=== PATIENT | female | born 1995 | race Caucasian/White ===

== ENCOUNTER 2018-01-21 15:35 | Emergency (ER) | payer BC ==
[2018-01-21 15:51] VITALS: BP 153/78
[2018-01-21] MEDS ORDERED: Sodium Chloride 0.9% 10 ML Syringe FLUSH PRN (16:08)
--- NOTE | 2018-01-21 16:09 | EDM.PDOC ---
ED HPI GENERAL MEDICAL PROBLEM - General Chief Complaint: Respiratory Problem Stated Complaint: HARD TIME CATCHING BREATH Time Seen by Provider: 01/21/18 15:49 Source of Information: Reports: Patient History Limitations: Reports: No Limitations - History of Present Illness INITIAL COMMENTS - FREE TEXT/NARRATIVE: 22-year-old female presents for evaluation and treatment of shortness of breath. Patient reports starting around 1400. She was grocery shopping time. States that she has feels like she has a hard time catching her breath. She reports chest pressure with this. She states that she felt lightheaded and experienced tunnel vision. She did feel nauseous. She now has a headache. She denies any syncope, vomiting, pain or swelling in her legs. No recent travel. patient reports that she has had similar symptoms on and off similar to this since June or July when she was started on Wellbutrin. She had first attributed this to drinking caffeine and beeing on the Wellbutrin. She states that she has discontinued taking caffeine. She states she now gets the same feeling when she drinks even water. Patient is not currently on any contraceptives. Primary care provider is Dr. Hill. 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 Other Musculoskeletal History: right wrist Psychiatric History: Reports: Depression - Past Surgical History HEENT Surgical History: Reports: Oral Surgery Musculoskeletal Surgical History: Reports: Other (See Below) Other Musculoskeletal Surgeries/Procedures:: closed reduction Social & Family History - Tobacco Use Smoking Status *Q: Never Smoker - Caffeine Use Caffeine Use: Reports: None - Recreational Drug Use Recreational Drug Use: No ED ROS GENERAL - Review of Systems Review Of Systems: See Below HEENT: Reports: Vision Change (reports tunnel vision earlier, now resolved) Respiratory: Reports: Shortness of Breath Cardiovascular: Reports: Chest Pain (reports chest pressure), Lightheadedness GI/Abdominal: Reports: Nausea. Denies: Vomiting Musculoskeletal: Denies: Leg Pain Neurological: Reports: Syncope ED EXAM, GENERAL - Physical Exam Exam: See Below Exam Limited By: No Limitations General Appearance: Alert, WD/WN, No Apparent Distress, Thin Eye Exam: Bilateral Eye: Normal Inspection, PERRL Ears: Normal External Exam, Normal Canal, Hearing Grossly Normal, Normal TMs Nose: Normal Inspection Throat/Mouth: Normal Inspection, Normal Lips, Normal Oropharynx, Normal Voice, No Airway Compromise Respiratory/Chest: No Respiratory Distress, Lungs Clear, Normal Breath Sounds Cardiovascular: Normal Peripheral Pulses, Regular Rate, Rhythm, No Murmur GI/Abdominal: Soft, Non-Tender Extremities: Normal Inspection. No: Rand's Sign Neurological: Alert, Oriented, Normal Cognition Psychiatric: Normal Affect, Normal Mood Skin Exam: Warm, Dry, Normal Color EKG INTERPRETATION EKG Date: 01/21/18 Time: 16:20 Rhythm: NSR Rate (Beats/Min): 105 [place]: Normal P-Wave: Present QRS: Normal ST-T: Normal QT: Normal EKG Interpretation Comments: sinus tachycardia at 105 bpm. Reviewed by myself and Dr. Alonso. Course - Vital Signs Last Recorded V/S: Last Vital Signs Temp 99.5 F 01/21/18 15:40 Pulse 151 H 01/21/18 15:40 Resp 24 H 01/21/18 15:40 BP 153/78 H 01/21/18 15:40 Pulse Ox 99 01/21/18 15:40 - Orders/Labs/Meds Orders: Active Orders 24 hr Category Date Time Status Holter Monitor 48 Hours [RC] .PRN Care 01/21/18 18:11 Active Labs: Laboratory Tests 01/21/18 01/21/18 01/21/18 Range/Units 16:27 16:27 16:27 WBC 7.79 (3.98-10.04) K/mm3 RBC 4.69 (3.98-5.22) M/mm3 Hgb 14.0 (11.2-15.7) gm/L Hct 42.2 (34.1-44.9) % MCV 90.0 (79.4-94.8) fl MCH 29.9 (25.6-32.2) pg MCHC 33.2 (32.2-35.5) g/dl RDW Std Deviation 40.9 (36.4-46.3) fL Plt Count 331 (182-369) K/mm3 MPV 9.3 L (9.4-12.3) fl Neut % (Auto) 66.2 (34.0-71.1) % Lymph % (Auto) 23.2 (19.3-51.7) % Boundary % (Auto) 9.1 (4.7-12.5) % Eos % (Auto) 1.0 (0.7-5.8) Baso % (Auto) 0.4 (0.1-1.2) % Neut # (Auto) 5.15 (1.56-6.13) K/mm3 Lymph # (Auto) 1.81 (1.18-3.74) K/mm3 Boundary # (Auto) 0.71 H (0.24-0.36) K/mm3 Eos # (Auto) 0.08 (0.04-0.36) K/mm3 Baso # (Auto) 0.03 (0.01-0.08) K/mm3 D-Dimer, Quantitative 0.20 (0.19-0.50) mg/L Sodium 139 (136-145) mEq/L Potassium 3.6 (3.5-5.1) mEq/L Chloride 103 (98-107) mEq/L Carbon Dioxide 23 (21-32) mEq/L Anion Gap 16.6 H (5-15) BUN 17 (7-18) mg/dL Creatinine 0.7 (0.55-1.02) mg/dL Est Cr Clr Drug Dosing 101.39 mL/min Estimated GFR (MDRD) > 60 (>60) mL/min BUN/Creatinine Ratio 24.3 H (14-18) Glucose 88 (74-106) mg/dL Calcium 8.9 (8.5-10.1) mg/dL Magnesium 1.9 (1.8-2.4) mg/dl Total Bilirubin 0.4 (0.2-1.0) mg/dL AST 17 (15-37) U/L ALT 22 (14-59) U/L Alkaline Phosphatase 67 (46-116) U/L Troponin I (0.00-0.056) ng/mL Total Protein 7.9 (6.4-8.2) g/dl Albumin 4.1 (3.4-5.0) g/dl Globulin 3.8 gm/dL Albumin/Globulin Ratio 1.1 (1-2) TSH 3rd Generation 1.539 (0.516-4.13) uIU/mL HCG, Qual (NEGATIVE) Urine Color (Yellow) Urine Appearance (Clear) Urine pH (5.0-8.0) Ur Specific [place] (1.005-1.030) Urine Protein (Negative) Urine Glucose (UA) (Negative) Urine Ketones (Negative) Urine Occult Blood (Negative) Urine Nitrite (Negative) Urine Bilirubin (Negative) Urine Urobilinogen (0.2-1.0) Ur Leukocyte Esterase (Negative) Urine RBC (0-5) /hpf Urine WBC (0-5) /hpf Ur Epithelial Cells (0-5) /hpf Urine Bacteria (FEW) /hpf Urine Mucus (FEW) /hpf 01/21/18 01/21/18 01/21/18 Range/Units 16:27 16:27 16:57 WBC (3.98-10.04) K/mm3 RBC (3.98-5.22) M/mm3 Hgb (11.2-15.7) gm/L Hct (34.1-44.9) % MCV (79.4-94.8) fl MCH (25.6-32.2) pg MCHC (32.2-35.5) g/dl RDW Std Deviation (36.4-46.3) fL Plt Count (182-369) K/mm3 MPV (9.4-12.3) fl Neut % (Auto) (34.0-71.1) % Lymph % (Auto) (19.3-51.7) % Boundary % (Auto) (4.7-12.5) % Eos % (Auto) (0.7-5.8) Baso % (Auto) (0.1-1.2) % Neut # (Auto) (1.56-6.13) K/mm3 Lymph # (Auto) (1.18-3.74) K/mm3 Bound[place] # (Auto) (0.24-0.36) K/mm3 Eos # (Auto) (0.04-0.36) K/mm3 Baso # (Auto) (0.01-0.08) K/mm3 D-Dimer, Quantitative (0.19-0.50) mg/L Sodium (136-145) mEq/L Potassium (3.5-5.1) mEq/L Chloride (98-107) mEq/L Carbon Dioxide (21-32) mEq/L Anion Gap (5-15) BUN (7-18) mg/dL Creatinine (0.55-1.02) mg/dL Est Cr Clr Drug Dosing mL/min Estimated GFR (MDRD) (>60) mL/min BUN/Creatinine Ratio (14-18) Glucose (74-106) mg/dL Calcium (8.5-10.1) mg/dL Magnesium (1.8-2.4) mg/dl Total Bilirubin (0.2-1.0) mg/dL AST (15-37) U/L ALT (14-59) U/L Alkaline Phosphatase (46-116) U/L Troponin I < 0.017 (0.00-0.056) ng/mL Total Protein (6.4-8.2) g/dl Albumin (3.4-5.0) g/dl Globulin gm/dL Albumin/Globulin Ratio (1-2) TSH 3rd Generation (0.516-4.13) uIU/mL HCG, Qual Negative (NEGATIVE) Urine Color Yellow (Yellow) Urine Appearance Clear (Clear) Urine pH 6.5 (5.0-8.0) Ur Specific [place] 1.015 (1.005-1.030) Urine Protein Negative (Negative) Urine Glucose (UA) Negative (Negative) Urine Ketones 1+ H (Negative) Urine Occult Blood Negative (Negative) Urine Nitrite Negative (Negative) Urine Bilirubin Negative (Negative) Urine Urobilinogen 0.2 (0.2-1.0) Ur Leukocyte Esterase Negative (Negative) Urine RBC 0-5 (0-5) /hpf Urine WBC 0-5 (0-5) /hpf Ur Epithelial Cells 0-5 (0-5) /hpf Urine Bacteria Occasional (FEW) /hpf Urine Mucus Not seen (FEW) /hpf Meds: Medications Discontinued Medications Generic Name Dose Route Start Last Admin Trade Name Freq PRN Reason Stop Dose Admin Sodium Chloride 10 ml 01/21/18 16:08 Saline Flush FLUSH ASDIRECTED PRN Keep Vein Open - Radiology Interpretation Free Text/Narrative:: chest xray shows no acute intrathoracic process. Reviewed by myself and Dr. Alonso. - Re-Assessments/Exams Free Text/Narrative Re-Assessment/Exam: 01/21/18 18:12 Reviewed the labs, EKG and imaging with the patient. She feels better since coming to the ED. Will place on a 48-hour Holter monitor. I will have her avoid caffeine. Discussed that this is possibly a side effect of her medications. At this point will obtain a 48-hour Holter monitor to rule out any underlying arrhythmias. She'll follow up with her primary care provider as soon as she is able to. May discuss discontinuing the Wellbutrin at that appointment. Discharge instructions as documented. 01/21/18 18:40 Patient is going out of town the next few days. Will have her wear the holter monitor when she returns on Saturday. Departure - Departure Time of Disposition: 18:12 Disposition: Home, Self-Care 01 Condition: Fair Clinical Impression: Tachycardia - Discharge Information *PRESCRIPTION DRUG MONITORING PROGRAM REVIEWED*: No *COPY OF PRESCRIPTION DRUG MONITORING REPORT IN PATIENT ZOHRA: No Instructions: Sinus Tachycardia Referrals: PCP,None [Primary Care Provider] - Brenda Francisco MD [Physician] - Forms: ED Department Discharge Additional Instructions: Wear 48 hour holter monitor as directed. Follow-up with PCP within the next 1-2weeks for a recheck and to review holter monitor results. Rest. Drink plenty of fluids. Please return to the ER should your symptoms change or worsen. - My Orders Last 24 Hours: My Active Orders 01/21/18 18:11 Holter Monitor 48 Hours [RC] .PRN - Assessment/Plan Last 24 Hours: My Active Orders 01/21/18 18:11 Holter Monitor 48 Hours [RC] .PRN
--- NOTE | 2018-01-23 09:01 | CR ---
Chest: Two views of the chest were obtained. Comparison: Prior chest x-ray of 01/25/15. Heart size and mediastinum are normal. Lungs are clear. Bony structures are unremarkable. Impression: 1. Nothing acute is seen on two-view chest x-ray. Diagnostic code #1
== END 2018-01-21 18:26 | disposition home or self-care (01) ==
LOC: JD.ED 15:35
DX: R00.0 Tachycardia, unspecified (principal); Z88.1 Allergy status to other antibiotic agents; Z88.0 Allergy status to penicillin; Z88.2 Allergy status to sulfonamides; Z79.899 Other long term (current) drug therapy
CPT/HCPCS: 36415; 71046; 71046-26; 80053; 81001; 83735; 84443; 84484; 84703; 85025; 85379; 93005; 93010; 99284; 99285-25

== ENCOUNTER 2020-08-01 19:02 | Inpatient (IN) | payer BC ==
[2020-08-01] MEDS ORDERED: Nalbuphine 10 MG/1 ML Vial IVPUSH PRN (20:08)
[2020-08-01] MEDS ORDERED: Sodium Chloride 0.9% 10 ML Syringe FLUSH PRN (20:08)
[2020-08-01] MEDS ORDERED: Ondansetron 4 MG/2 ML SDV IVPUSH PRN ×2 (20:08→21:56)
--- NOTE | 2020-08-01 20:09 | PCM.LDHP ---
L&D History of Present Illness - General Date of Service: 08/01/20 Admit Problem/Dx: Patient Status Order with Admit Dx/Problem 08/01/20 19:29 Patient Status [ADT] Routine 08/01/20 20:08 Patient Status [ADT] Routine Admission Diagnosis/Problem Admission Diagnosis/Problem Source of Information: Patient History Limitations: Reports: No Limitations - History of Present Illness Introduction:: Patient is a 25 y/o at 37 1/7 wks who presents with SROM. Occurred this PM around supper. Started noting very painful contractions right after. 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 : 1 Para: 0 LMP (Approximate): Other Musculoskeletal History: right wrist Psychiatric History: Reports: Anxiety, Depression - Past Surgical History HEENT Surgical History: Reports: Myringotomy w Tube(s), Oral Surgery Female Surgical History: Reports: Other (See Below) (diagnostic laparoscopy) Musculoskeletal Surgical History: Reports: Other (See Below) Other Musculoskeletal Surgeries/Procedures:: closed reduction Social & Family History - Tobacco Use Tobacco Use Status *Q: Never Tobacco User - Caffeine Use Caffeine Use: Reports: None - Alcohol Use Alcohol Use History: No - Recreational Drug Use Recreational Drug Use: No H&P Review of Systems - Review of Systems: Review Of Systems: See Below General: Reports: No Symptoms Pulmonary: Reports: No Symptoms Cardiovascular: Reports: No Symptoms Gastrointestinal: Reports: No Symptoms Genitourinary: Reports: No Symptoms Musculoskeletal: Reports: No Symptoms Psychiatric: Reports: No Symptoms Neurological: Reports: No Symptoms L&D Exam - Exam Exam: See Below - Vital Signs Weight: 75.07 kg - OB Specific Contraction Intensity: Moderate to Strong Movement: Active Heart Tones: Present Heart Tones per Min: 135 Heart Rate (FHR) Variability: Moderate (6-25 bmp) Presentation: Vertex - Lambert Score Lambert Score Cervix Position: Anterior Lambert Score Consistency: Soft Lambert Score Effacement: >80% Lambert Score Dilation: 3-4 cm Lambert Score Infant's Station: -1 ,0 Lambert Score Total: 11 - Exam General: Alert, Oriented, Cooperative Lungs: Clear to Auscultation, Normal Respiratory Effort Cardiovascular: Regular Rate, Regular Rhythm GI/Abdominal Exam: Soft, Non-Tender Genitourinary: Normal external exam Extremities: Normal Inspection Skin: Warm, Dry, Intact - Patient Data Lab Results Last 24 hrs: Laboratory Results - last 24 hr 08/01/20 Range/Units 19:30 Membrane Rupture Positive H - Problem List (1) 37 weeks gestation of SNOMED Code(s): 84222353 ICD Code: Z3A.37 - 37 WEEKS GESTATION OF Status: Acute Current Visit: Yes (2) Spontaneous rupture of membranes SNOMED Code(s): 868982496 ICD Code: [id number] - Status: Acute Current Visit: Yes (3) Thin meconium stained amniotic fluid SNOMED Code(s): 913560826 ICD Code: P96.83 - MECONIUM STAINING Status: Acute Current Visit: Yes (4) GBS carrier SNOMED Code(s): 8344221150446 ICD Code: Z22.330 - CARRIER OF GROUP B STREPTOCOCCUS Status: Acute Cu rrent Visit: Yes Problem List Initiated/Reviewed/Updated: Yes Orders Last 24hrs: Active Orders 24 hr Category Date Time Status Patient Status [ADT] Routine ADT 08/01/20 19:29 Active Patient Status [ADT] Routine ADT 08/01/20 20:08 Ordered Activity as Tolerated [RC] PFP Care 08/01/20 20:08 Ordered Communication Order [RC] ASDIRECTED Care 08/01/20 20:08 Ordered Heart Tones [RC] ASDIRECTED Care 08/01/20 20:08 Ordered Non Stress Test [RC] PER UNIT ROUTINE Care 08/01/20 19:29 Active Notify Provider [RC] PRN Care 08/01/20 20:08 Ordered Peripheral IV Care [RC] . DIRECTED Care 08/01/20 20:08 Ordered Vaginal Exam [RC] PRN Care 08/01/20 19:30 Active Vital Signs [RC] PER UNIT ROUTINE Care 08/01/20 19:29 Active Regular Diet [DIET] Diet 08/01/20 Dinner Ordered CBC W/O DIFF,HEMOGRAM [HEME] Stat Lab 08/01/20 20:08 Ordered CORONAVIRUS COVID-19 [facility] [MOLEC] Stat Lab 08/01/20 19:30 Received RAPID PLASMA REAGIN,RPR [CHEM] Routine Lab 08/01/20 20:08 Ordered TYPE AND SCREEN [BBK] Stat Lab 08/01/20 20:08 Ordered Lactated Ringers [Ringers, Lactated] 1,000 ml Med 08/01/20 20:15 Ordered IV ASDIRECTED Nalbuphine [Nubain] Med 08/01/20 20:08 Ordered 10 mg IVPUSH Q2H PRN Ondansetron [Zofran] Med 08/01/20 20:08 Ordered 4 mg IVPUSH Q4H PRN Oxytocin/Lactated Ringers [Pitocin in LR 10 Units/1,000 Med 08/01/20 20:15 Ordered ML] 10 unit in 1,000 ml IV .CONTINUOUS Sodium Chloride 0.9% [Saline Flush] Med 08/01/20 20:08 Ordered 10 ml FLUSH ASDIRECTED PRN Vancomycin [Vancocin] 1 gm Med 08/01/20 21:00 Ordered Sodium Chloride 0.9% [Normal Saline (AdvBag)] 250 ml IV Q12HR Electronic Heart Tones Ext w TOCO [WOMSER] Oth 08/01/20 20:08 Ordered Routine Electronic Heart Tones Internal [WOMSER] Per Unit Oth 08/01/20 20:08 Ordered Routine Peripheral IV Insertion Adult [OM.PC] Routine Oth 08/01/20 20:08 Ordered Resuscitation Status Routine Resus Stat 08/01/20 19:29 Ordered Medication Orders Lactated Ringer's (Ringers, Lactated) 1,000 mls @ 100 mls/hr IV ASDIRECTED EDU Vancomycin HCl 1 gm/ Sodium (Chloride) 250 mls @ 167 mls/hr IV Q12HR EDU Oxytocin/Lactated Ringer's (Pitocin In Lr 10 Units/1,000 Ml) 10 unit in 1,000 mls @ 500 mls/hr IV .CONTINUOUS EDU Nalbuphine HCl (Nubain) 10 mg IVPUSH Q2H PRN PRN Reason: Pain Ondansetron HCl (Zofran) 4 mg IVPUSH Q4H PRN PRN Reason: Nausea/Vomiting Sodium Chloride (Saline Flush) 10 ml FLUSH ASDIRECTED PRN PRN Reason: Keep Vein Open Assessment/Plan Comment:: * Labs ordered * GBS positive with several PCN and Ancef allergies - sensitivities showed resistance to Clindamycin. Start Vancomycin * Pain management per patient preference * Anticipate
[2020-08-01] MEDS ORDERED: Oxytocin/Lactated Ringers 10 UNIT/1,000 ML BAG IV SCH (20:15)
[2020-08-01] MEDS: Lactated Ringers 1,000 ML IV SCH ×2 (20:47→21:54)
[2020-08-01] MEDS ORDERED: fentaNYL 100 MCG/2 ML SDV ONE (21:49)
[2020-08-01] MEDS ORDERED: fentaNYL 100 MCG/2 ML SDV EPIDUR PRN (21:56)
[2020-08-01] MEDS ORDERED: ePHEDrine 50 MG/ML SDV IVPUSH PRN (21:56)
--- NOTE | 2020-08-01 21:58 | PCM.PREANE ---
Preanesthetic Assessment - Procedure Proposed Procedure: Epidural - Anesthesia/Transfusion/Family Hx Anesthesia History: Prior Anesthesia Without Reaction Family History of Anesthesia Reaction: No Transfusion History: No Prior Transfusion(s) Intubation History: Unknown - Review of Systems General: No Symptoms Pulmonary: No Symptoms Cardiovascular: No Symptoms (Tachycardia), Palpitations (anxiety) Gastrointestinal: No Symptoms, Constipation, Nausea, Vomiting Neurological: No Symptoms (motion sickness) Other: Reports: Depression, Anxiety - Physical Assessment NPO Status Date: 08/01/20 NPO Status Time: 18:30 Vital Signs: Last Vital Signs Temp 37.2 C 08/01/20 21:08 Pulse 100 08/01/20 21:08 Resp 18 08/01/20 21:08 BP 131/79 08/01/20 21:08 Pulse Ox 99 08/01/20 21:08 Height: 1.57 m Weight: 75.07 kg ASA Class: 2 Mental Status: Alert & Oriented x3 Airway Class: Mallampati = 2 Dentition: Reports: Normal Dentition, Caries Thyro-Mental Finger Breadths: 3 Mouth Opening Finger Breadths: 3 ROM/Head Extension: Full Lungs: Clear to Auscultation, Normal Respiratory Effort Cardiovascular: Regular Rate, Regular Rhythm, No Murmurs - Lab Values: Laboratory Last Values WBC 11.67 K/mm3 (3.98-10.04) H 08/01/20 20:24 RBC 3.75 M/mm3 (3.98-5.22) L 08/01/20 20:24 Hgb 10.8 gm/dl (11.2-15.7) L D 08/01/20 20:24 Hct 34.3 % (34.1-44.9) 08/01/20 20:24 MCV 91.5 fl (79.4-94.8) 08/01/20 20:24 MCH 28.8 pg (25.6-32.2) 08/01/20 20:24 MCHC 31.5 g/dl (32.2-35.5) L 08/01/20 20:24 RDW Std Deviation 43.3 fL (36.4-46.3) 08/01/20 20:24 Plt Count 342 K/mm3 (182-369) 08/01/20 20:24 MPV 9.8 fl (9.4-12.3) 08/01/20 20:24 Membrane Rupture Positive H 08/01/20 19:30 SARS-CoV-2 RNA (RUDOLPH) Negative (NEGATIVE) 08/01/20 19:30 Blood Type A POSITIVE 08/01/20 20:24 Gel Antibody Screen Negative 08/01/20 20:24 Above labs reviewed and noted and within acceptable ranges to proceed with epidural. - Allergies Allergies/Adverse Reactions: Allergies Allergy/AdvReac Type Severity Reaction Status Date / Time amoxicillin Allergy Rash Verified 01/21/18 15:51 penicillin Allergy Rash Verified 01/21/18 15:51 Sulfa (Sulfonamide Allergy Rash Verified 01/21/18 15:51 Antibiotics) - Anesthesia Plan Pre-Op Medication Ordered: Beta Shan Beta Shan: Labetalol Med Last Dose Date: 07/31/20 Med Last Dose Time: 21:30 - Acknowledgements Anesthesia Type Planned: Epidural Pt an Appropriate Candidate for the Planned Anesthesia: Yes Alternatives and Risks of Anesthesia Discussed w Pt/Guardian: Yes Pt/Guardian Understands and Agrees with Anesthesia Plan: Yes PreAnesthesia Questionnaire Cardiovascular History: Reports: Other (See Below) (tachycardia) Other Cardiovascular History: tachycardia with occassion pvcs 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, Polycystic 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 OB/BYN History: eggs catching in fallopian tubes Other Musculoskeletal History: right wrist Psychiatric History: Reports: Anxiety, Depression - Past Surgical History HEENT Surgical History: Reports: Myringotomy w Tube(s), Oral Surgery Female Surgical History: Reports: Other (See Below) (diagnostic laparoscopy) - SUBSTANCE USE Tobacco Use Status *Q: Never Tobacco User Second Hand Smoke Exposure: No Recreational Drug Use History: No - HOME MEDS Home Medications: Home Meds buPROPion HCL [Wellbutrin Xl] 150 mg PO DAILY 01/21/18 [History] - CURRENT (IN HOUSE) MEDS Current Meds: Current Medications Bupropion HCl (Wellbutrin Xl) 300 mg PO DAILY EDU Ephedrine Sulfate (Ephedrine Sulfate) 5 mg IVPUSH ASDIRECTED PRN PRN Reason: Hypotension Fentanyl (Sublimaze) 100 mcg EPIDUR Q3H PRN PRN Reason: Pain Fentanyl/Bupivacaine HCl (Fentanyl/Bupivacaine/Ns 2 Mcg-0.125% 100 Ml) 100 ml EPIDUR ASDIRECTED EDU Fluoxetine HCl (Prozac) 20 mg PO DAILY EDU Lactated Ringer's (Ringers, Lactated) 1,000 mls @ 100 mls/hr IV ASDIRECTED [facility] Last Admin: 08/01/20 21:54 Dose: 100 mls/hr Documented by: Vancomycin HCl 1 gm/ Sodium (Chloride) 250 mls @ 167 mls/hr IV Q12HR [facility] Last Admin: 08/01/20 20:47 Dose: 167 mls/hr Documented by: Oxytocin/Lactated Ringer's (Pitocin In Lr 10 Units/1,000 Ml) 10 unit in 1,000 mls @ 500 mls/hr IV .CONTINUOUS [facility] Miscellaneous Medication (Phenylephrine 1 Mg/10 Ml-Ns) 0 mg IVPUSH ONETIME ONE Stop: 08/01/20 21:57 Nalbuphine HCl (Nubain) 10 mg IVPUSH Q2H PRN PRN Reason: Pain Ondansetron HCl (Zofran) 4 mg IVPUSH Q4H PRN PRN Reason: Nausea/Vomiting Ondansetron HCl (Zofran) 4 mg IVPUSH ONETIME PRN PRN Reason: Nausea/Vomiting Sodium Chloride (Saline Flush) 10 ml FLUSH ASDIRECTED PRN PRN Reason: Keep Vein Open Discontinued Medications Fentanyl (Sublimaze) Confirm Administered Dose 100 mcg .ROUTE .STK-MED ONE Stop: 08/01/20 21:50 Last Admin: 08/01/20 21:53 Dose: 100 mcg Documented by:
[2020-08-01] MEDS ORDERED: Bupivacaine/fentaNYL/NS 100 ML Bag EPIDUR SCH (22:00)
[2020-08-02] MEDS ORDERED: Bupivacaine 0.25% 10 ML SDV ONE
--- NOTE | 2020-08-02 02:23 | PCM.DEL ---
L & D Note - General Info Date of Service: 08/02/20 - Delivery Note Labor: Spontaneous Delivery Outcome: Livebirth Delivery Method: Spontaneous Vaginal Delivery-Single Delivery Mode: Spontaneous Presentation: Right Occiput Anterior (JOLEEN) Nuchal Cord: None Anesthesia Type: Epidural Episiotomy Type: None Laceration: Periurethral (hemostatic and so not repaired ) Placenta: Intact, Spontaneous Cord: 3 Vessels Estimated Blood Loss: 200 (413 total after 2 hours) Resuscitation Needed: Yes : Bulb Syringe, Stimulated, Warmed, [place] Used, Warmer Used Delivery Comments (Free Text/Narrative):: Patient found to be complete and began pushing. With maternal pushing effort head delivered from an JOLEEN presentation. No nuchal cord present. With gentle downward traction the shoulders and body delivered. placed on maternal abdomen . Cord clamped and cut. Cord blood obtained. Placenta allowed time to separate and expelled intact. Inspection of perineum showed small, bilateral periurethral tears. These were hemostatic and so not repaired. - General Info Date of Service: 08/02/20 - Patient Data Vitals - Most Recent: Last Vital Signs Temp 37.2 C 08/01/20 21:08 Pulse 100 08/01/20 21:08 Resp 18 08/01/20 21:08 BP 131/79 08/01/20 21:08 Pulse Ox 99 08/01/20 21:08 Weight - Most Recent: 75.07 kg - Problem List & Annotations (1) 37 weeks gestation of SNOMED Code(s): 09021971 Code(s): Z3A.37 - 37 WEEKS GESTATION OF Status: Acute Current Visit: Yes (2) Spontaneous rupture of membranes SNOMED Code(s): 358375810 Code(s): VDS0601 - Status: Acute Current Visit: Yes (3) Thin meconium stained amniotic fluid SNOMED Code(s): 062950945 Code(s): P96.83 - MECONIUM STAINING Status: Acute Current Visit: Yes (4) GBS carrier SNOMED Code(s): 7800032540154 Code(s): Z22.330 - CARRIER OF GROUP B STREPTOCOCCUS Status: Acute Current Visit: Yes (5) Vaginal delivery SNOMED Code(s): 801443687 Code(s): O80 - ENCOUNTER FOR FULL-TERM UNCOMPLICATED DELIVERY Status: Acute Current Visit: Yes - Problem List Review Problem List Initiated/Reviewed/Updated: Yes - My Orders Last 24 Hours: My Active Orders 08/01/20 Dinner Regular Diet [DIET] 08/01/20 19:29 Non Stress Test [RC] PER UNIT ROUTINE Vital Signs [RC] 09,15,21,03 Resuscitation Status Routine 08/01/20 19:30 Vaginal Exam [RC] PRN 08/01/20 20:08 Patient Status [ADT] Routine Activity as Tolerated [RC] PFP Communication Order [RC] ASDIRECTED Heart Tones [RC] ASDIRECTED Notify Provider [RC] PRN Peripheral IV Care [RC] Q2HR Nalbuphine [Nubain] 10 mg IVPUSH Q2H PRN Ondansetron [Zofran] 4 mg IVPUSH Q4H PRN Sodium Chloride 0.9% [Saline Flush] 10 ml FLUSH ASDIRECTED PRN Electronic Heart Tones Ext w TOCO [WOMSER] Routine Electronic Heart Tones Internal [WOMSER] Per Unit Routine Peripheral IV Insertion Adult [OM.PC] Routine 08/01/20 20:15 Lactated Ringers [Ringers, Lactated] 1,000 ml IV ASDIRECTED Oxytocin/Lactated Ringers [Pitocin in LR 10 Units/1,000 ML] 10 unit in 1,000 ml IV .CONTINUOUS 08/01/20 21:00 Vancomycin [Vancocin] 1 gm Sodium Chloride 0.9% [Normal Saline (AdvBag)] 250 ml IV Q12HR 08/01/20 21:29 PATIENT RETYPE [BBK] Routine 08/02/20 09:00 FLUoxetine [PROzac] 20 mg PO DAILY buPROPion [Wellbutrin XL] 300 mg PO DAILY - Assessment Assessment:: PPD#0 - Plan Plan:: * Routine cares * Breast feeding * Continue home Wellbutrin and Prozac * Discharge home in 1-2 days
[2020-08-02] MEDS ORDERED: Benzocaine/Menthol 20%-0.5% Spray 56 GM Canister TOP PRN (02:32)
[2020-08-02] MEDS ORDERED: Acetaminophen 325 MG Tab PO PRN (02:32)
[2020-08-02] MEDS ORDERED: Docusate Sodium 100 MG Cap PO PRN (02:32)
[2020-08-02] MEDS: Witch Hazel Medicated Pads 40/Jar TOP PRN ×2 (04:06→17:33)
[2020-08-02] MEDS: Ibuprofen 600 MG Tab PO PRN ×3 (04:07→20:39)
--- NOTE | 2020-08-02 07:36 | PCM48HPAN ---
Post Anesthesia Note - EVALUATION WITHIN 48HRS OF ANESTHETIC Vital Signs in Normal Range: Yes Patient Participated in Evaluation: Yes Respiratory Function Stable: Yes Airway Patent: Yes Cardiovascular Function Stable: Yes Hydration Status Stable: Yes Pain Control Satisfactory: Yes Nausea and Vomiting Control Satisfactory: Yes Mental Status Recovered: Yes Vital Signs: Last Vital Signs Temp 37.2 C 08/01/20 21:08 Pulse 100 08/01/20 21:08 Resp 18 08/01/20 21:08 BP 131/79 08/01/20 21:08 Pulse Ox 99 08/01/20 21:08
[2020-08-02] MEDS: buPROPion 150 MG Tab.ER PO SCH (15:23)
[2020-08-02] MEDS: FLUoxetine 20 MG Cap PO SCH (15:23)
--- NOTE | 2020-08-03 06:54 | PCM.PNPP ---
- General Info Date of Service: 08/03/20 Functional Status: Reports: Pain Controlled, Tolerating Diet, Ambulating, Urinating - Review of Systems General: Reports: No Symptoms Pulmonary: Reports: No Symptoms Cardiovascular: Reports: No Symptoms Gastrointestinal: Reports: No Symptoms Genitourinary: Reports: No Symptoms Musculoskeletal: Reports: No Symptoms Neurological: Reports: No Symptoms - Patient Data Vital Signs - Most Recent: Last Vital Signs Temp 36.6 C 08/03/20 03:03 Pulse 80 08/03/20 03:03 Resp 16 08/03/20 03:03 BP 113/62 08/03/20 03:03 Pulse Ox 97 08/03/20 03:03 Weight - Most Recent: 75.07 kg I&O - Last 24 Hours: Intake & Output 08/02/20 08/02/20 08/03/20 14:59 22:59 06:59 Intake Total 190 Balance 190 Med Orders - Current: Current Medications Acetaminophen (Tylenol) 650 mg PO Q4H PRN PRN Reason: mild pain or fever Last Admin: 08/02/20 09:16 Dose: 650 mg Documented by: Benzocaine/Menthol (Dermoplast Pain Relief [place]) 0 gm TOP ASDIRECTED PRN PRN Reason: Perineal Comfort Measure Last Admin: 08/02/20 04:06 Dose: 1 can Documented by: Bupropion HCl (Wellbutrin Xl) 300 mg PO DAILY [facility] Last Admin: 08/02/20 15:23 Dose: Not Given Documented by: Docusate Sodium (Colace) 100 mg PO BID PRN PRN Reason: Constipation Fluoxetine HCl (Prozac) 20 mg PO DAILY [facility] Last Admin: 08/02/20 15:23 Dose: Not Given Documented by: Ibuprofen (Motrin) 600 mg PO Q6H PRN PRN Reason: Mild pain or fever Last Admin: 08/02/20 20:39 Dose: 600 mg Documented by: Savannah Leos (Lakhwinder) 1 pad TOP ASDIRECTED PRN PRN Reason: Perineal Comfort Measure Last Admin: 08/02/20 17:33 Dose: 1 jar Documented by: Discontinued Medications Ephedrine Sulfate (Ephedrine Sulfate) 5 mg IVPUSH ASDIRECTED PRN PRN Reason: Hypotension Fentanyl (Sublimaze) Confirm Administered Dose 100 mcg .ROUTE .STK-MED ONE Stop: 08/01/20 21:50 Last Admin: 08/01/20 21:53 Dose: 100 mcg Documented by: Fentanyl (Sublimaze) 100 mcg EPIDUR Q3H PRN PRN Reason: Pain Fentanyl/Bupivacaine HCl (Fentanyl/Bupivacaine/Ns 2 Mcg-0.125% 100 Ml) 100 ml EPIDUR ASDIRECTED [facility] Last Admin: 08/01/20 22:04 Dose: 100 ml Documented by: Lactated Ringer's (Ringers, Lactated) 1,000 mls @ 100 mls/hr IV ASDIRECTED [facility] Last Admin: 08/01/20 21:54 Dose: 100 mls/hr Documented by: Vancomycin HCl 1 gm/ Sodium (Chloride) 250 mls @ 167 mls/hr IV Q12HR [facility] Last Admin: 08/01/20 20:47 Dose: 167 mls/hr Documented by: Oxytocin/Lactated Ringer's (Pitocin In Lr 10 Units/1,000 Ml) 10 unit in 1,000 mls @ 500 mls/hr IV .CONTINUOUS [facility] Miscellaneous Medication (Phenylephrine 1 Mg/10 Ml-Ns) 0 mg IVPUSH ONETIME ONE Stop: 08/01/20 21:57 Last Admin: 08/02/20 15:24 Dose: Not Given Documented by: Nalbuphine HCl (Nubain) 10 mg IVPUSH Q2H PRN PRN Reason: Pain Ondansetron HCl (Zofran) 4 mg IVPUSH Q4H PRN PRN Reason: Nausea/Vomiting Ondansetron HCl (Zofran) 4 mg IVPUSH ONETIME PRN PRN Reason: Nausea/Vomiting Sodium Chloride (Saline Flush) 10 ml FLUSH ASDIRECTED PRN PRN Reason: Keep Vein Open - Infant Interaction Disposition, : in Room with Family Interaction: Holding Feeding: Bottle Fed Infant, Breastfed ; Nursed Well Support Person: - Recovery Exam Fundal Tone: Firm Fundal Level: 1 Fingerbreadths Below Umbilicus Fundal Placement: Midline Lochia Amount: Scant Lochia Color: Rubra/Red Perineum Description: Intact, Minimal Bruising/Swelling Episiotomy/Laceration: None Bladder Status: Voiding Urinary Elimination: Voided - Exam General: Alert, Oriented, Cooperative GI/Abdominal Exam: Soft, Non-Tender Extremities: Normal Inspection Skin: Warm, Dry, Intact - Problem List & Annotations (1) 37 weeks gestation of SNOMED Code(s): 36294333 Code(s): Z3A.37 - 37 WEEKS GESTATION OF Status: Acute Current Visit: Yes (2) Spontaneous rupture of membranes SNOMED Code(s): 958809138 Code(s): JBN1713 - Status: Acute Current Visit: Yes (3) Thin meconium stained amniotic fluid SNOMED Code(s): 984812786 Code(s): P96.83 - MECONIUM STAINING Status: Acute Current Visit: Yes (4) GBS carrier SNOMED Code(s): 0086265521086 Code(s): Z22.330 - CARRIER OF GROUP B STREPTOCOCCUS Status: Acute Current Visit: Yes (5) Vaginal delivery SNOMED Code(s): 590381621 Code(s): O80 - ENCOUNTER FOR FULL-TERM UNCOMPLICATED DELIVERY Status: Acute Current Visit: Yes - Problem List Review Problem List Initiated/Reviewed/Updated: Yes - My Orders Last 24 Hours: My Active Orders 08/02/20 Breakfast Regular Diet [DIET] 08/02/20 09:00 FLUoxetine [PROzac] 20 mg PO DAILY buPROPion [Wellbutrin XL] 300 mg PO DAILY 08/03/20 02:32 Heat Therapy [OM.PC] PRN - Assessment Assessment:: PPD#1 - Plan Plan:: * Routine cares * Breast feeding, did some supplementation overnight as well * Continue home Wellbutrin and Prozac * Discharge home today vs tomorrow depending upon Pediatric preference
[2020-08-03] MEDS: Ibuprofen 600 MG Tab PO PRN ×2 (08:17→19:58)
[2020-08-03] MEDS: FLUoxetine 20 MG Cap PO SCH (09:00)
[2020-08-03] MEDS: buPROPion 150 MG Tab.ER PO SCH (09:00)
--- NOTE | 2020-08-04 06:48 | PCM.PNPP ---
- General Info Date of Service: 08/04/20 Functional Status: Reports: Pain Controlled, Tolerating Diet, Ambulating, Urinating - Review of Systems General: Reports: No Symptoms Pulmonary: Reports: No Symptoms Cardiovascular: Reports: No Symptoms Gastrointestinal: Reports: No Symptoms Genitourinary: Reports: No Symptoms Musculoskeletal: Reports: No Symptoms Neurological: Reports: No Symptoms - Patient Data Vital Signs - Most Recent: Last Vital Signs Temp 36.7 C 08/04/20 06:05 Pulse 97 08/04/20 06:05 Resp 15 08/04/20 06:05 BP 111/82 08/04/20 06:05 Pulse Ox 98 08/04/20 06:05 Weight - Most Recent: 75.07 kg I&O - Last 24 Hours: Intake & Output 08/03/20 08/03/20 08/04/20 14:59 22:59 06:59 Intake Total 0 Balance 0 Med Orders - Current: Current Medications Acetaminophen (Tylenol) 650 mg PO Q4H PRN PRN Reason: mild pain or fever Last Admin: 08/02/20 09:16 Dose: 650 mg Documented by: Benzocaine/Menthol (Dermoplast Pain Relief [place]) 0 gm TOP ASDIRECTED PRN PRN Reason: Perineal Comfort Measure Last Admin: 08/02/20 04:06 Dose: 1 can Documented by: Bupropion HCl (Wellbutrin Xl) 300 mg PO DAILY [facility] Last Admin: 08/03/20 09:00 Dose: Not Given Documented by: Docusate Sodium (Colace) 100 mg PO BID PRN PRN Reason: Constipation Fluoxetine HCl (Prozac) 20 mg PO DAILY [facility] Last Admin: 08/03/20 09:00 Dose: Not Given Documented by: Ibuprofen (Motrin) 600 mg PO Q6H PRN PRN Reason: Mild pain or fever Last Admin: 08/03/20 19:58 Dose: 600 mg Documented by: Savannah Leos (Lakhwinder) 1 pad TOP ASDIRECTED PRN PRN Reason: Perineal Comfort Measure Last Admin: 08/02/20 17:33 Dose: 1 jar Documented by: Discontinued Medications Bupivacaine HCl (Sensorcaine-Mpf 0.25%) 10 ml .ROUTE .STK-MED ONE Stop: 08/02/20 00:01 Ephedrine Sulfate (Ephedrine Sulfate) 5 mg IVPUSH ASDIRECTED PRN PRN Reason: Hypotension Fentanyl (Sublimaze) Confirm Administered Dose 100 mcg .ROUTE .STK-MED ONE Stop: 08/01/20 21:50 Last Admin: 08/01/20 21:53 Dose: 100 mcg Documented by: Fentanyl (Sublimaze) 100 mcg EPIDUR Q3H PRN PRN Reason: Pain Fentanyl/Bupivacaine HCl (Fentanyl/Bupivacaine/Ns 2 Mcg-0.125% 100 Ml) 100 ml EPIDUR ASDIRECTED [facility] Last Admin: 08/01/20 22:04 Dose: 100 ml Documented by: Lactated Ringer's (Ringers, Lactated) 1,000 mls @ 100 mls/hr IV ASDIRECTED [facility] Last Admin: 08/01/20 21:54 Dose: 100 mls/hr Documented by: Vancomycin HCl 1 gm/ Sodium (Chloride) 250 mls @ 167 mls/hr IV Q12HR [facility] Last Admin: 08/01/20 20:47 Dose: 167 mls/hr Documented by: Oxytocin/Lactated Ringer's (Pitocin In Lr 10 Units/1,000 Ml) 10 unit in 1,000 mls @ 500 mls/hr IV .CONTINUOUS [facility] Miscellaneous Medication (Phenylephrine 1 Mg/10 Ml-Ns) 0 mg IVPUSH ONETIME ONE Stop: 08/01/20 21:57 Last Admin: 08/02/20 15:24 Dose: Not Given Documented by: Nalbuphine HCl (Nubain) 10 mg IVPUSH Q2H PRN PRN Reason: Pain Ondansetron HCl (Zofran) 4 mg IVPUSH Q4H PRN PRN Reason: Nausea/Vomiting Ondansetron HCl (Zofran) 4 mg IVPUSH ONETIME PRN PRN Reason: Nausea/Vomiting Sodium Chloride (Saline Flush) 10 ml FLUSH ASDIRECTED PRN PRN Reason: Keep Vein Open - Interaction Infant Disposition, : [place] in Room with Family Interaction: Holding Infant Infant Feeding: Bottle Fed , Breastfed Infant; Nursed Well Support Person: - Recovery Exam Fundal Tone: Firm Fundal Level: 1 Fingerbreadths Below Umbilicus Fundal Placement: Midline Lochia Amount: Scant, Small Lochia Color: Rubra/Red Perineum Description: Intact, Minimal Bruising/Swelling Episiotomy/Laceration: None Bladder Status: Voiding Urinary Elimination: Voided - Exam General: Alert, Oriented, Cooperative GI/Abdominal Exam: Soft, Non-Tender Extremities: Normal Inspection Skin: Warm, Dry, Intact - Problem List & Annotations (1) 37 weeks gestation of SNOMED Code(s): 45347282 Code(s): Z3A.37 - 37 WEEKS GESTATION OF Status: Acute Current Visit: Yes (2) Spontaneous rupture of membranes SNOMED Code(s): 077639583 Code(s): ROZ1205 - Status: Acute Current Visit: Yes (3) Thin meconium stained amniotic fluid SNOMED Code(s): 334963746 Code(s): P96.83 - MECONIUM STAINING Status: Acute Current Visit: Yes (4) GBS carrier SNOMED Code(s): 3974846102351 Code(s): Z22.330 - CARRIER OF GROUP B STREPTOCOCCUS Status: Acute Current Visit: Yes (5) Vaginal delivery SNOMED Code(s): 137427357 Code(s): O80 - ENCOUNTER FOR FULL-TERM UNCOMPLICATED DELIVERY Status: Acute Current Visit: Yes - Problem List Review Problem List Initiated/Reviewed/Updated: Yes - Assessment Assessment:: PPD#2 - Plan Plan:: * Routine cares * Breast feeding with some supplementation * Continue home Wellbutrin and Prozac * Discharge home today * Follow up in 3 weeks for check
--- NOTE | 2020-08-04 06:49 | PCM.DCSUM1 ---
Discharge Summary - Discharge Data Discharge Date: 08/04/20 Discharge Disposition: Home, Self-Care 01 Condition: Good - Referral to Home Health Primary Care Physician: Katalina Colon MD - Discharge Diagnosis/Problem(s) (1) 37 weeks gestation of SNOMED Code(s): 40300978 ICD Code: Z3A.37 - 37 WEEKS GESTATION OF Status: Acute Current Visit: Yes (2) Spontaneous rupture of membranes SNOMED Code(s): 139601444 ICD Code: ROY0324 - Status: Acute Current Visit: Yes (3) Thin meconium stained amniotic fluid SNOMED Code(s): 525119584 ICD Code: P96.83 - MECONIUM STAINING Status: Acute Current Visit: Yes (4) GBS carrier SNOMED Code(s): 8011644325867 ICD Code: Z22.330 - CARRIER OF GROUP B STREPTOCOCCUS Status: Acute C urrent Visit: Yes (5) Vaginal delivery SNOMED Code(s): 763893803 ICD Code: O80 - ENCOUNTER FOR FULL-TERM UNCOMPLICATED DELIVERY Status: Acute Current Visit: Yes - Patient Summary/Data Complications: None Consults: None Recommended Follow-up Testing/Procedures: Follow up in 3 weeks for check Hospital Course: 25 y/o at 37 1/7 wks who presented with SROM/labor. Progressed well without augmentation to complete dilation. Underwent an uncomplicated . See delivery note. did well and was discharged home on PPD#2 - Patient Instructions Diet: Regular Diet as Tolerated Activity: As Tolerated Activity, Other: Pelvic rest for 6 weeks Driving: May Drive Today Showering/Bathing: May Shower Showering/Bathing, Other: May Bathe Notify Provider of: Fever, Increased Pain, Swelling and Redness, Drainage, Nausea and/or Vomiting - Discharge Plan *PRESCRIPTION DRUG MONITORING PROGRAM REVIEWED*: No *COPY OF PRESCRIPTION DRUG MONITORING REPORT IN PATIENT ZOHRA: No Home Medications: Home Meds buPROPion HCL [Wellbutrin Xl] 300 mg PO DAILY 01/21/18 [History] FLUoxetine HCl [Fluoxetine] 20 mg PO DAILY 08/01/20 [History] Vits #93/Iron Fum/FA [ Formula Tablet] 1 ea PO DAILY 08/01/20 [History] Docusate Sodium [Colace] 100 mg PO BID PRN cap 08/03/20 [Rx] Ibuprofen [Motrin] 600 mg PO Q6H PRN tablet 08/03/20 [Rx] Referrals: Katalina Colon MD [Primary Care Provider] - (3 weeks for check (can be telehealth)) - Discharge Summary/Plan Comment DC Time >30 min.: No - Patient Data Vitals - Most Recent: Last Vital Signs Temp 36.7 C 08/04/20 06:05 Pulse 97 08/04/20 06:05 Resp 15 08/04/20 06:05 BP 111/82 08/04/20 06:05 Pulse Ox 98 08/04/20 06:05 Weight - Most Recent: 75.07 kg I&O - Last 24 hours: Intake & Output 08/03/20 08/03/20 08/04/20 14:59 22:59 06:59 Intake Total 0 Balance 0 Med Orders - Current: Current Medications Acetaminophen (Tylenol) 650 mg PO Q4H PRN PRN Reason: mild pain or fever Last Admin: 08/02/20 09:16 Dose: 650 mg Documented by: Benzocaine/Menthol (Dermoplast Pain Relief [place]) 0 gm TOP ASDIRECTED PRN PRN Reason: Perineal Comfort Measure Last Admin: 08/02/20 04:06 Dose: 1 can Documented by: Bupropion HCl (Wellbutrin Xl) 300 mg PO DAILY [facility] Last Admin: 08/03/20 09:00 Dose: Not Given Documented by: Docusate Sodium (Colace) 100 mg PO BID PRN PRN Reason: Constipation Fluoxetine HCl (Prozac) 20 mg PO DAILY [facility] Last Admin: 08/03/20 09:00 Dose: Not Given Documented by: Ibuprofen (Motrin) 600 mg PO Q6H PRN PRN Reason: Mild pain or fever Last Admin: 08/03/20 19:58 Dose: 600 mg Documented by: [facility] pad TOP ASDIRECTED PRN PRN Reason: Perineal Comfort Measure Last Admin: 08/02/20 17:33 Dose: 1 jar Documented by: Discontinued Medications Bupivacaine HCl (Sensorcaine-Mpf 0.25%) 10 ml .ROUTE .STK-MED ONE Stop: 08/02/20 00:01 Ephedrine Sulfate (Ephedrine Sulfate) 5 mg IVPUSH ASDIRECTED PRN PRN Reason: Hypotension Fentanyl (Sublimaze) Confirm Administered Dose 100 mcg .ROUTE .STK-MED ONE Stop: 08/01/20 21:50 Last Admin: 08/01/20 21:53 Dose: 100 mcg Documented by: Fentanyl (Sublimaze) 100 mcg EPIDUR Q3H PRN PRN Reason: Pain Fentanyl/Bupivacaine HCl (Fentanyl/Bupivacaine/Ns 2 Mcg-0.125% 100 Ml) 100 ml EPIDUR ASDIRECTED [facility] Last Admin: 08/01/20 22:04 Dose: 100 ml Documented by: Lactated Ringer's (Ringers, Lactated) 1,000 mls @ 100 mls/hr IV ASDIRECTED [facility] Last Admin: 08/01/20 21:54 Dose: 100 mls/hr Documented by: Vancomycin HCl 1 gm/ Sodium (Chloride) 250 mls @ 167 mls/hr IV Q12HR [facility] Last Admin: 08/01/20 20:47 Dose: 167 mls/hr Documented by: Oxytocin/Lactated Ringer's (Pitocin In Lr 10 Units/1,000 Ml) 10 unit in 1,000 mls @ 500 mls/hr IV .CONTINUOUS [facility] Miscellaneous Medication (Phenylephrine 1 Mg/10 Ml-Ns) 0 mg IVPUSH ONETIME ONE Stop: 08/01/20 21:57 Last Admin: 08/02/20 15:24 Dose: Not Given Documented by: Nalbuphine HCl (Nubain) 10 mg IVPUSH Q2H PRN PRN Reason: Pain Ondansetron HCl (Zofran) 4 mg IVPUSH Q4H PRN PRN Reason: Nausea/Vomiting Ondansetron HCl (Zofran) 4 mg IVPUSH ONETIME PRN PRN Reason: Nausea/Vomiting Sodium Chloride (Saline Flush) 10 ml FLUSH ASDIRECTED PRN PRN Reason: Keep Vein Open
[2020-08-04 09:24] VITALS: BP 120/67; PULSE 99
== END 2020-08-04 09:20 | disposition home or self-care (01) | DRG 560 ==
LOC: JD.OBCHECK 19:02 → JD.OB 19:09 → JD.OBCHECK 20:15 → JD.OB 20:15 → OBSVTOIN 08-02 02:09 → JD.OB 08-02 02:10
PROVIDERS: ADMIT Obstetrics & Gynecology; ATTEND Obstetrics & Gynecology
PROC: 10E0XZZ Delivery of Products of Conception, External Approach (ICD-10-PCS; principal; 2020-08-02)
PROC: 3E0R3BZ Introduction of Anesthetic Agent into Spinal Canal, Percutaneous Approach (ICD-10-PCS; 2020-08-02)
PROC: 00HU33Z Insertion of Infusion Device into Spinal Canal, Percutaneous Approach (ICD-10-PCS; 2020-08-02)
DX: O77.0 Labor and delivery complicated by meconium in amniotic fluid (principal); Z37.0 Single live birth; O99.824 Streptococcus B carrier state complicating childbirth; Z20.822 Contact with and (suspected) exposure to COVID-19; Z3A.37 37 weeks gestation of pregnancy; Z88.0 Allergy status to penicillin; Z88.2 Allergy status to sulfonamides
CPT/HCPCS: 01967; 36415; 51702; 59025; 59409; 84112; 85027; 86592; 86850; 86900; 86901; A9270-GY; J3010; J3370; J3490; J7050; J7120; U0002

== ENCOUNTER 2023-10-19 05:04 | Inpatient (IN) | payer BC ==
[~2023-10-19 05:04] MED LIST: Bupivacaine 0.25% 10 ML SDV ONE
[2023-10-19] MEDS: Lactated Ringers 1,000 ML IV SCH (06:12)
[2023-10-19] MEDS ORDERED: Ondansetron 4 MG/2 ML SDV IVPUSH PRN (07:56)
[2023-10-19] MEDS ORDERED: Lidocaine 1% 50 ML MDV INJECT PRN (07:56)
[2023-10-19 08:13] LABS: BASOPHILS PERCENT AUTO 0.3 % (0.0-1.0); EOSINOPHILS ABSOLUTE AUTO 0.1 K/mm3 (0.0-0.4); HEMATOCRIT 36.4 % (37.0-47.0); HEMOGLOBIN 12.2 gm/dl (12.0-16.0); IMMATURE GRAN ABSOLUTE AUTO 0.15 K/mm3 (0.00-0.05); IMMATURE GRAN PERCENT AUTO 1.3 % (0.0-0.4); LYMPHOCYTES ABSOLUTE AUTO 1.9 K/mm3 (1.0-4.8); LYMPHOCYTES PERCENT AUTO 17.2 % (24.0-44.0); MEAN CORPUSCULAR HEMOGLOBIN 31.4 pg (28.0-32.0); MEAN CORPUSCULAR HGB CONC 33.5 g/dl (32.0-36.0); MEAN CORPUSCULAR VOLUME 93.8 fl (83.0-99.0); MEAN PLATELET VOLUME 10.1 fl (9.4-12.3); MONOCYTES ABSOLUTE AUTO 0.8 K/mm3 (0.0-0.8); MONOCYTES PERCENT AUTO 7.2 % (0.0-8.0); NEUTROPHILS ABSOLUTE AUTO 8.2 K/mm3 (1.8-7.7); PLATELET COUNT,PLT 243 K/mm3 (150-400); RED BLOOD CELL COUNT 3.88 M/mm3 (4.10-5.30); WHITE BLOOD CELL COUNT,WBC 11.16 K/mm3 (3.9-11.3)
[2023-10-19] MEDS ORDERED: ePHEDrine 50 MG/ML SDV IVPUSH PRN (08:13)
[2023-10-19] MEDS ORDERED: diphenhydrAMINE 50 MG/ML SDV IVPUSH PRN (08:13)
[2023-10-19] MEDS ORDERED: Bupivacaine/fentaNYL/NS 100 ML Bag EPIDUR PRN (08:13)
[2023-10-19] MEDS: Nalbuphine 10 MG/ML Syringe IVPUSH PRN (08:30)
[2023-10-19] MEDS: buPROPion 150 MG Tab.ER PO SCH (10:47)
[2023-10-19] MEDS: Venlafaxine 75 MG Cap.ER PO SCH (10:47)
[2023-10-19] MEDS: fentaNYL 100 MCG/2 ML SDV EPIDUR PRN (14:10)
[2023-10-19] MEDS: Oxytocin/Lactated Ringers 30 UNIT/500 ML BAG IV SCH (14:12)
[2023-10-19] MEDS ORDERED: Docusate Sodium 100 MG Cap PO PRN (15:24)
[2023-10-19] MEDS: Witch Hazel Medicated Pads 40/Jar TOP PRN (16:14)
[2023-10-19] MEDS: Benzocaine/Menthol 20%-0.5% Spray 78 GM Cannister TOP PRN (16:15)
[2023-10-19] MEDS: Acetaminophen 325 MG Tab PO PRN (18:53)
[2023-10-19] MEDS: Ibuprofen 600 MG Tab PO PRN (22:27)
[2023-10-20 13:38] VITALS: BP 119/78; PULSE 104
== END 2023-10-20 13:00 | disposition home or self-care (01) | DRG 560 ==
LOC: JD.OBCHECK 05:04 → JD.OB 05:08 → JD.OBCHECK 08:02 → OBSVTOIN 13:52 → JD.OB 13:53
PROVIDERS: ADMIT Obstetrics & Gynecology; ATTEND Obstetrics & Gynecology
PROC: 10E0XZZ Delivery of Products of Conception, External Approach (ICD-10-PCS; principal; 2023-10-19)
PROC: 10907ZC Drainage of Amniotic Fluid, Therapeutic from Products of Conception, Via Natural or Artificial Opening (ICD-10-PCS; 2023-10-19)
DX: O99.824 Streptococcus B carrier state complicating childbirth (principal); Z37.0 Single live birth; Z3A.37 37 weeks gestation of pregnancy; O77.0 Labor and delivery complicated by meconium in amniotic fluid; Z88.0 Allergy status to penicillin; Z88.2 Allergy status to sulfonamides; Z88.8 Allergy status to other drugs, medicaments and biological substances; Z87.891 Personal history of nicotine dependence; Z98.890 Other specified postprocedural states
CPT/HCPCS: 36415; 59025; 59409; 85025; 86592; 86850; 86900; 86901; A9270-GY; J2300; J3010; J3370; J3490; J7050; J7120; J7999